=== PATIENT | male | born 1975 | race Caucasian/White ===

== ENCOUNTER → 2017-02-26 | Outpatient (CLI) | payer BC ==
[~2017-02-26] VITALS: Ht 177.8 cm; Wt 70.3 kg
[~2017-02-26] MED LIST: AMBIEN5 MG PO; CIPRO500 MG PO; CIPROFLOXACIN500 M1 PO; FLAGYL500 MG PO; LATUDA40 MG PO; LATUDA80 MG PO; LITHIUM CARBON300 M1 PO; LITHIUM CARBON600 MG PO; LYRICA200 MG PO; MARINOL5 MG PO; METRONIDAZOLE500 MG PO; NEURONTIN100 MG PO; NORCO 5/3251 TABLET PO; OXYCODONE HCL5 MG PO; OXYCONTIN20 MG PO; OXYCONTIN40 MG PO; PERCOCET 5/31 TABLET PO; PYRIDIUM200 MG PO; ROXICODONE15 MG PO; ROXICODONE5 MG PO; SILVADENE20 GM TP; STOOL SOFTENER100 M1 PO; XELODA500 MG PO
== END | disposition home or self-care (01) ==
LOC: AMB 10:00
PROC: 0D9 Gastrointestinal System, Drainage (ICD-10-PCS; principal; 2017-02-26)
DX: C79.89 Secondary malignant neoplasm of other specified sites (principal); Z85.048 Personal history of other malignant neoplasm of rectum, rectosigmoid junction, and anus; F17.200 Nicotine dependence, unspecified, uncomplicated; Z92.21 Personal history of antineoplastic chemotherapy; F31.2 Bipolar disorder, current episode manic severe with psychotic features
CPT/HCPCS: 88173; 88305; 88341 TC; 88342 TC; C1726; J2250; J3010

== ENCOUNTER 2017-03-11 07:02 | Day surgery (SDC) | payer BC ==
[~2017-03-11] VITALS: Ht 177.8 cm; Wt 70.3 kg
[~2017-03-11 07:02] MED LIST changes: +OXYCODONE HCL10 MG PO
[2017-03-11 07:47] VITALS: BP 117/70
[2017-03-11] MEDS ORDERED: NORCO 5/3251 TABLET PO (09:14)
[2017-03-11 10:10] VITALS: BP 106/55
== END 2017-03-11 10:35 | disposition home or self-care (01) ==
LOC: SDC 07:02
PROC: B5181ZA Fluoroscopy of Superior Vena Cava using Low Osmolar Contrast, Guidance (ICD-10-PCS; principal; 2017-03-11)
PROC: 02HV33Z Insertion of Infusion Device into Superior Vena Cava, Percutaneous Approach (ICD-10-PCS; principal; 2017-03-11)
PROC: 0JH60WZ Insertion of Totally Implantable Vascular Access Device into Chest Subcutaneous Tissue and Fascia, Open Approach (ICD-10-PCS; principal; 2017-03-11)
DX: Z45.2 Encounter for adjustment and management of vascular access device (principal); C20 Malignant neoplasm of rectum; I87.8 Other specified disorders of veins; G62.0 Drug-induced polyneuropathy; T45.1X5A Adverse effect of antineoplastic and immunosuppressive drugs, initial encounter; F31.2 Bipolar disorder, current episode manic severe with psychotic features; Z93.3 Colostomy status
CPT/HCPCS: 71045; 87641; C1751; C1894; J0690; J1885; J2250; J2405; J3010